=== PATIENT | male | born 1950 | race Caucasian/White ===

== ENCOUNTER → 2018-01-01 | Outpatient (REF) | payer OTHER ==
[2018-01-09 00:07] LABS: COPPER PLASMA 66 ug/dL (72-166); LEAD BLOOD ADULT 2 ug/dL (0-4); MERCURY LEVEL 1.4 ug/L (0.0-14.9); VITAMIN B6,PYRIDOXAL PHOSPHATE 18.9 ug/L (5.3-46.7); VITAMIN E(ALPHA TOCOPHEROL) 14.7 mg/L (9.0-29.0); VITAMIN E(GAMMA TOCOPHEROL) 0.8 mg/L (0.5-4.9)
== END ==
LOC: M LABNEURO 14:43
DX: E53.8 Deficiency of other specified B group vitamins (principal); R25.1 Tremor, unspecified; R26.89 Other abnormalities of gait and mobility
CPT/HCPCS: 82525

== ENCOUNTER 2019-01-26 07:12 | Day surgery (SDC) | payer OTHER ==
[~2019-01-26] VITALS: Ht 170.2 cm; Wt 88.9 kg
[~2019-01-26 07:12] MED LIST: ASPI81TA26 PO; CHOL100029 PO; COLE625TAB PO; FLAX1300 PO; GNP1000T11 PO; LISI10TA4 PO; LORA-243 PO; METF-723 PO; MULTCAP PO; NS 1,000 ML IV ONE
[2019-01-26] MEDS ORDERED: propofoL 200 MG/20 ML VIAL As Ordered ONE ×3 (08:41→09:37)
[2019-01-26] MEDS ORDERED: LIDOCAINE 2% INJ 100 MG/5 ML SDV (FOR ANES.) As Ordered ONE (08:41)
--- NOTE | 2019-01-26 09:46 | ROOR ---
Patient Name: Moshe Tillman Procedure Date: 01/26/2019 8:59 AM Date of : 1950 Age: 68 Room: [facility] Gender: Male Note Status: Finalized Procedure: Total Colonoscopy to cecum + Bx. Indications: Screening for colorectal malignant neoplasm Providers: Haris Wilson MD Referring MD: MARY SIMPSON NP Requesting Provider: Medicines: Monitored Anesthesia Care Complications: No immediate complications. Procedure: Pre-Anesthesia Assessment: - The heart rate, respiratory rate, oxygen saturations, blood pressure, adequacy of pulmonary ventilation, and response to care were monitored throughout the procedure. The Colonoscope was introduced through the anus and advanced to the cecum, identified by appendiceal orifice and ileocecal valve. The colonoscopy was performed without difficulty. The patient tolerated the procedure well. The quality of the bowel preparation was excellent. Findings: The perianal and digital rectal examinations were normal. Non-bleeding internal hemorrhoids were found during retroflexion. The hemorrhoids were small and Grade I (internal hemorrhoids that do not prolapse). Scattered small-mouthed diverticula were found in the recto-sigmoid colon, sigmoid colon and descending colon. A large polyp was found in the cecum. The polyp was sessile. The polyp was removed with a jumbo cold forceps. Resection and retrieval were complete. The exam was otherwise without abnormality on direct and retroflexion views. Impression: - Non-bleeding internal hemorrhoids. - Diverticulosis in the recto-sigmoid colon, in the sigmoid colon and in the descending colon. - One large polyp in the cecum, removed with a jumbo cold forceps. Resected and retrieved. - The examination was otherwise normal on direct and retroflexion views. - The exam was otherwise normal to the cecum. Recommendation: - Patient has a contact number available for emergencies. The signs and symptoms of potential delayed complications were discussed with the patient. Return to normal activities tomorrow. Written discharge instructions were provided to the patient. - High fiber diet. - Discharge patient to home. - Continue present medications. - Await pathology results. - Telephone GI clinic for pathology results in 1 week. - Return to referring physician. - The findings and recommendations were discussed with the patient's family. Haris Wilson MD Haris Wilson MD 01/26/2019 9:45:49 AM Electronically signed by Haris Wilson MD Number of Addenda: 0 Note Initiated On: 01/26/2019 8:59 AM Estimated Blood Loss: Estimated blood loss: none.
[2019-01-26 10:10] VITALS: BP 121/71
== END 2019-01-26 10:17 | disposition home or self-care (01) ==
LOC: M OPP 07:12
PROVIDERS: ATTEND Internal Medicine Gastroenterology
DX: Z12.11 Encounter for screening for malignant neoplasm of colon (principal); K64.0 First degree hemorrhoids; K57.30 Diverticulosis of large intestine without perforation or abscess without bleeding; D12.0 Benign neoplasm of cecum; I10 Essential (primary) hypertension; E78.5 Hyperlipidemia, unspecified; E11.9 Type 2 diabetes mellitus without complications; K76.89 Other specified diseases of liver; Z85.820 Personal history of malignant melanoma of skin; M19.90 Unspecified osteoarthritis, unspecified site; L40.9 Psoriasis, unspecified; R06.83 Snoring; Z79.82 Long term (current) use of aspirin; Z79.899 Other long term (current) drug therapy; Z79.84 Long term (current) use of oral hypoglycemic drugs

== ENCOUNTER 2019-02-20 15:40 | Emergency (ER) | payer OTHER ==
[~2019-02-20] VITALS: Ht 170.2 cm; Wt 92.4 kg
[~2019-02-20 15:40] MED LIST changes: -NS 1,000 ML IV ONE
[2019-02-20 16:47] LABS: HEMOGLOBIN 12.3 g/dl (13.5-17.5); MEAN CORPUSCULAR HEMOGLOBIN 28.5 pg (27.0-33.0); MEAN CORPUSCULAR HGB CONC 31.5 g/dl (32.0-36.5); MEAN CORPUSCULAR VOLUME 90.3 fl (80.0-96.0); PLATELET COUNT, AUTOMATED 149 10^3/uL (150-450); RED BLOOD COUNT 4.32 10^6/uL (4.30-6.10); WHITE BLOOD COUNT 5.6 10^3/uL (4.0-10.0)
[2019-02-20 17:12] LABS: BLOOD UREA NITROGEN 16 MG/DL (7-18); CARBON DIOXIDE LEVEL 27 MEQ/L (21-32); CHLORIDE LEVEL 106 MEQ/L (98-107); GLOMERULAR FILTRATION RATE > 60.0 (>42); GLUCOSE, FASTING 86 MG/DL (70-100); POTASSIUM SERUM 4.7 MEQ/L (3.5-5.1); SODIUM LEVEL 139 MEQ/L (136-145)
[2019-02-20 18:00] VITALS: BP 138/70
--- NOTE | 2019-02-22 11:39 | ECGEPIP ---
[facility] - ED Test Date: 2019-02-20 Pat Name: SAM ARAUJO Department: Room: - Gender: Male Incident Manager: jean carlos erazo : 1950 Requested By: Ignacio Aj Order Number: [id number] Reading MD: Violette Molina Measurements Intervals [place] Rate: 63 P: 17 TX: 156 QRS: 20 QRSD: 150 T: 20 QT: 435 QTc: 446 Interpretive Statements SINUS RHYTHM RIGHT BUNDLE BRANCH BLOCK NO PRIOR Electronically Signed on 02-22-2019 11:38:52 EST by Violette Molina
== END 2019-02-20 18:28 | disposition home or self-care (01) ==
LOC: M ED 15:40
DX: R55 Syncope and collapse (principal); I45.10 Unspecified right bundle-branch block; E11.9 Type 2 diabetes mellitus without complications; I10 Essential (primary) hypertension; Z79.82 Long term (current) use of aspirin; Z79.84 Long term (current) use of oral hypoglycemic drugs; Z79.899 Other long term (current) drug therapy

== ENCOUNTER 2019-05-28 06:20 | Inpatient (IN) | payer OTHER ==
--- NOTE | 2019-05-26 19:40 | HPE ---
DATE OF SCHEDULED ADMISSION: 05/28/2019 The patient is being admitted on May 28, 2019 for a right hemicolectomy for a non-endoscopically resectable cecal polyp. HISTORY OF PRESENT ILLNESS: The patient is a 69-year-old man who had undergone a colonoscopy as a routine screening procedure with Dr. Wilson on January 26, 2019. He was found to have what was described as a large polyp in the cecum. Portions of this were removed with a snare, but it could not be completely removed. Pathology revealed fragments of tubular adenoma with no definite high-grade dysplasia identified. The patient was referred for consideration of colectomy to resect this polyp. Review of his endoscopy photos suggests the polyp lies near the ileocecal valve, between this and the appendiceal orifice. The patient was counseled for partial colectomy to remove this. He elected to defer treatment until after the holidays and is being admitted now on May 28, 2019 for a robotic-assisted laparoscopic right hemicolectomy. ALLERGIES: The patient denies any known drug allergies. MEDICATIONS: Medications include: - aspirin 81 mg by mouth daily - flaxseed oral 1000 mg three tablets daily - vitamin D 2000 units by mouth daily - glucosamine 500 mg two tablets daily - lisinopril 10 mg by mouth daily - metformin 500 mg by mouth twice daily - Welchol 625 mg three tablets twice daily with meals. - He was prescribed neomycin and Flagyl and Suprep for a preoperative antibiotic and mechanical bowel preparation. SURGICAL HISTORY: Significant for an umbilical hernia repair in June of 2008 at [facility]. 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 MEDICAL HISTORY: Significant for hypertension. He has a history of hypercholesterolemia as well as diabetes. SOCIAL HISTORY: The patient is . He is a former smoker who quit over 40 years ago. He denies any alcohol use. FAMILY HISTORY: Father and mother are both due to unknown causes. He has a brother with diabetes and hypertension, and a sister who has had heart disease and breast cancer. REVIEW OF SYSTEMS: Reveals no history of chest pain or palpitations. He denies any shortness of breath, cough or wheezing. He has had no melena, hematochezia, diarrhea or constipation. He denies any dysuria or hematuria. He is not having any significant bone or joint issues at this time. There is no history of deep vein thrombosis (DVT) or pulmonary embolus. There is no history of stroke, transient ischemic attack (TIA) or seizure. PHYSICAL EXAM: Reveals a pleasant older man in no acute distress. Height is recorded as 67 inches with a weight of 94 kg, giving him a body mass index (BMI) of approximately 32. The skin is warm and dry. Sclerae are anicteric. There are no concerning facial lesions. Mucous membranes are moist. Neck is supple without mass. There are no cervical bruits. Heart Exam: Shows a regular rate and rhythm. The lungs are clear to auscultation bilaterally. The abdomen is flat but perhaps mildly obese. He has active bowel sounds present. The abdomen is soft and nontender without appreciable mass. There is a small periumbilical scar noted with no evidence of recurrent hernia. Digital rectal examination at the time of his colonoscopy revealed no palpable lesion. Skin: Warm and dry without apparent rash. He is alert and oriented. IMPRESSION: 1. Cecal polyp, not endoscopically resectable per Dr. Wilson of gastroenterology. 2. Essential hypertension. 3. Hypercholesterolemia. 4. Diabetes mellitus. PLAN: The patient is being admitted on May 28, 2019 to undergo a robotic-assisted laparoscopic right partial colectomy. He was counseled regarding the indications for surgery. He has a polyp which does not appear to be endoscopically resectable and there is a small risk that this either harbors cancer now or could proceed to cancer in the future. He had an opportunity to ask questions regarding the procedure. He was counseled regarding the risk of the procedure, which includes but is not limited to bleeding, infection, scarring, adverse drug reaction, need for further surgery, injury of internal organ, anastomotic leak, and hernia. The patient desires to proceed with the surgery. He was counseled that he should anticipate a hospital stay of perhaps 3-5 days, although this is a rough estimate. He will prepare himself with a mechanical bowel preparation and antibiotic bowel preparation with neomycin and Flagyl the day before surgery. CASH
[~2019-05-28] VITALS: Ht 170.2 cm; Wt 88.0 kg
[~2019-05-28 06:20] MED LIST changes: +ALVIMOPAN 12 MG CAPSULE (ENTEREG) PO ONE; +B-COTAB4 PO; +CLOB0.0526 TOP; +LR 1,000 ML IV ONE; +MECL12.589 PO; +PEG15DRO2 OP; +VITA100054 PO; +[UNRECOGNIZED DRUG - OTHER] TOP; +cefoTEtan DISODIUM 2 GM in D5W MINI-BAG PLUS 50 ML IV ONE
[2019-05-28] MEDS ORDERED: cefoTEtan INJ 2GM VIAL (S0074 PER 500MG) As Ordered ONE (06:30)
[2019-05-28] MEDS ORDERED: MIDAZOLAM INJ 2 MG/2 ML VIAL (J2250) As Ordered ONE (06:33)
[2019-05-28] MEDS ORDERED: fentaNYL 250 MCG/5 ML INJECTION (J3010) As Ordered ONE (06:34)
[2019-05-28] MEDS ORDERED: dexameTHASONE 4 MG/ML 1ML VIAL (J1100) As Ordered ONE (06:35)
[2019-05-28] MEDS ORDERED: LIDOCAINE 2% INJ 100 MG/5 ML SDV (FOR ANES.) As Ordered ONE (06:35)
[2019-05-28] MEDS ORDERED: ONDANSETRON 4MG/2ML VIAL (J2405) As Ordered ONE (06:35)
[2019-05-28] MEDS ORDERED: SUGAMMADEX SODIUM 500 MG/5 ML VIAL (BRIDION) As Ordered ONE (06:35)
[2019-05-28] MEDS ORDERED: propofoL 200 MG/20 ML VIAL As Ordered ONE (06:35)
[2019-05-28] MEDS ORDERED: ROCURONIUM BROMIDE 50 MG/5 ML VIAL As Ordered ONE (06:35)
[2019-05-28] MEDS ORDERED: BUPIVACAINE HCL 0.25% 30 ML VIAL As Ordered ONE (07:10)
[2019-05-28] MEDS ORDERED: FLAG500T PO (07:22)
[2019-05-28] MEDS ORDERED: NEOM500T PO (07:22)
[2019-05-28] MEDS ORDERED: ACETAMINOPHEN 1000MG 100ML IV BTL (OFIRMEV) (J0131 PER 10MG) As Ordered ONE (08:41)
[2019-05-28] MEDS ORDERED: fentaNYL 100 MCG/2 ML INJECTION (J3010) As Ordered ONE (09:52)
[2019-05-28] MEDS ORDERED: PHENYLephrine HCL 500 MCG/5 ML (100MCG/ML) SYRINGE (J2370) As Ordered ONE (10:33)
[2019-05-28] MEDS ORDERED: ePHEDrine SULFATE 25 MG/5 ML(5MG/ML) SYRINGE As Ordered ONE (10:33)
[2019-05-28] MEDS ORDERED: ONDANSETRON 4MG/2ML VIAL (J2405) IV PRN ×2 (11:30→11:45)
[2019-05-28] MEDS ORDERED: MORPHINE 2 MG/ML 1ML VIAL (J2270) IV PRN (11:30)
[2019-05-28] MEDS ORDERED: ACETAMINOPHEN TAB 650MG DOSE (2X325MG) PO PRN (11:30)
[2019-05-28] MEDS ORDERED: NORCO, ANEXSIA 5/325MG TABLET (HYDROcodone/ACETAMINOPHEN) PO PRN (11:30)
[2019-05-28] MEDS ORDERED: KETOROLAC 30 MG/ML VIAL (J1885) IV PRN ×2 (11:30→11:45)
[2019-05-28] MEDS ORDERED: oxyCODONE 5MG TAB PO PRN (11:45)
[2019-05-28] MEDS ORDERED: fentaNYL 100 MCG/2 ML INJECTION (J3010) IV PRN (11:45)
[2019-05-28] MEDS ORDERED: LR 1,000 ML IV SCH (11:45)
[2019-05-28 12:15] VITALS: BP 160/99
[2019-05-28 12:24] VITALS: BP 160/99
[2019-05-28] MEDS: LR 1,000 ML IV SCH (13:49)
[2019-05-28 14:00] VITALS: BP 148/98
[2019-05-28 18:00] VITALS: BP 153/97; O2SAT 96
[2019-05-28] MEDS: HumaLOG INSULIN (NovoLOG) PER UNIT SC SCH (18:40)
[2019-05-28] MEDS ORDERED: cefoTEtan DISODIUM 2 GM in D5W MINI-BAG PLUS 50 ML IV ONE (19:30)
[2019-05-28 21:00] VITALS: O2SAT 97
[2019-05-28] MEDS ORDERED: HumaLOG INSULIN (NovoLOG) PER UNIT SC SCH (21:00)
[2019-05-28] MEDS: MECLIZINE 12.5 MG TAB PO SCH (21:24)
[2019-05-28] MEDS: ALVIMOPAN 12 MG CAPSULE (ENTEREG) PO SCH (21:24)
[2019-05-28 22:00] VITALS: BP 157/93
[2019-05-28] MEDS: ENOXAPARIN 40 MG/0.4 ML SYRINGE (J1650) SC SCH (22:17)
[2019-05-29] MEDS: LR 1,000 ML IV SCH (01:01)
[2019-05-29 02:00] VITALS: BP 152/95
[2019-05-29 06:00] VITALS: BP 151/96
[2019-05-29 06:47] LABS: BASO % 0.7 % (0.0-1.0); EOS # 0.1 10^3/uL (0.0-0.5); EOS % 1.4 % (0.0-3.0); HEMATOCRIT 33.1 % (42.0-52.0); HEMOGLOBIN 10.8 g/dl (13.5-17.5); LYMPH # 2.1 10^3/uL (1.5-5.0); LYMPH % 36.5 % (24.0-44.0); MEAN CORPUSCULAR HEMOGLOBIN 28.6 pg (27.0-33.0); MEAN CORPUSCULAR HGB CONC 32.6 g/dl (32.0-36.5); MEAN CORPUSCULAR VOLUME 87.8 fl (80.0-96.0); MONO # 0.5 10^3/uL (0.0-0.8); MONO % 7.9 % (0.0-5.0); NEUTROPHILS # 3.1 10^3/uL (1.5-8.5); NEUTROPHILS % 53.2 % (36.0-66.0); PLATELET COUNT, AUTOMATED 124 10^3/uL (150-450); RED BLOOD COUNT 3.77 10^6/uL (4.30-6.10); WHITE BLOOD COUNT 5.8 10^3/uL (4.0-10.0)
[2019-05-29 07:19] LABS: ALBUMIN 3.2 GM/DL (3.2-5.2); ALT/SGPT 93 U/L (12-78); BILIRUBIN,TOTAL 0.9 MG/DL (0.2-1.0); BLOOD UREA NITROGEN 12 MG/DL (7-18); CARBON DIOXIDE LEVEL 27 MEQ/L (21-32); CHLORIDE LEVEL 104 MEQ/L (98-107); CREATININE FOR GFR 1.07 MG/DL (0.70-1.30); GLOMERULAR FILTRATION RATE > 60.0 (>42); GLUCOSE, FASTING 95 MG/DL (70-100); POTASSIUM SERUM 3.9 MEQ/L (3.5-5.1); SODIUM LEVEL 138 MEQ/L (136-145); TOTAL PROTEIN 6.3 GM/DL (6.4-8.2)
[2019-05-29] MEDS: HumaLOG INSULIN (NovoLOG) PER UNIT SC SCH (07:30)
[2019-05-29] MEDS: MECLIZINE 12.5 MG TAB PO SCH ×3 (09:04→21:03)
[2019-05-29] MEDS: ALVIMOPAN 12 MG CAPSULE (ENTEREG) PO SCH ×2 (09:04→21:03)
[2019-05-29] MEDS: LORATADINE 10 MG TAB PO SCH (09:04)
[2019-05-29] MEDS: lisinopriL 10 MG TAB PO SCH (09:08)
[2019-05-29 10:00] VITALS: BP 174/89
[2019-05-29 11:30] VITALS: BP 151/86
--- NOTE | 2019-05-29 12:09 | RO ---
DATE OF PROCEDURE: 05/28/2019 PREOPERATIVE DIAGNOSIS: Cecal polyp. POSTOPERATIVE DIAGNOSIS: Cecal polyp. PROCEDURE PERFORMED: A robotic-assisted laparoscopic right hemicolectomy with ileocolonic anastomosis. SURGEON: Dr. Chandra ANCIENT ART CURATOR: Dr. Samuel who was essential for assisting with exposure of the ileum and colon for an anastomosis and performance of the anastomosis. SECOND SENIOR CARE MANAGER: ROZINA Wilson who was essential for adjustment of the robot and passage of instruments. ANESTHESIA: General. INDICATIONS FOR PROCEDURE: The patient is a 68-year-old man who had undergone a colonoscopy as a routine screening procedure. He was found to have a large flat polyp in the cecum. Biopsies revealed adenomatous polyp, but this was not felt to be endoscopically resectable. He is now for a robotic-assisted laparoscopic right hemicolectomy. OPERATIVE PROCEDURE: The patient was brought to the operating room and placed on the table in a supine position. He was placed under general endotracheal anesthesia. Thromboembolic deterrent stockings (TEDS) and sequentials were utilized. A Stone catheter was inserted. The patient's abdomen was prepped and draped in a sterile fashion. 0.25% Marcaine was infiltrated at the trocar sites as needed. A short transverse incision was made just below the costal margin in the left upper quadrant. A Veress needle was inserted and after a positive hanging drop test the abdomen was insufflated with carbon dioxide gas. The 5 mm scope was placed through an 8 mm robotic port and this was advanced through the abdominal wall without difficulty. Initial examination showed no significant adhesions. The liver appeared mildly nodular but of normal coloration. The gallbladder was distended but not inflamed. Visualized loops of the small and large bowel appeared normal. A second 8 mm port was placed approximately midway between the left upper quadrant site and the umbilicus. A 12 mm port was placed just above the umbilicus and a third 8 mm port was placed in the right lower quadrant. The patient was rolled somewhat to the left. The [employer] patient cart was then brought into position and the camera port in the left upper quadrant was docked. The robotic camera was inserted and targeting took place on the right colon. The additional robotic arms were then docked. A grasping retractor was placed in the right lower quadrant port, a bipolar in the supraumbilical site and a cauterizing scissors in the left upper quadrant site. Attention was turned to the right colon. Initial examination showed a few bands of adhesion from the right colon and cecum to the lateral abdominal wall and these were divided. The lateral attachments of the cecum and ascending colon were divided working upwards along the ascending colon and mobilizing this medially. The lateral attachments of the terminal ileum were divided as well. The hepatic flexure was tucked beneath the liver and gallbladder significantly and it was necessary to elevate the edge of the liver with a grasper to identify the superior attachments of the hepatic flexure and divide these with the cauterizing scissors. The transverse colon took a significant loop inferiorly and so the transverse colon was identified just proximal to this inferior dip where it would make for ease of the anastomosis. Some of the greater omentum was elevated off of the transverse colon. The proximal transverse colon was then traced across the hepatic flexure dividing the remaining attachments beneath the liver using the vessel sealer. The colon was mobilized further medially. The terminal ileum was divided with a load of the 60 mm endoscopic linear cutter with a green load. The mesentery was divided down to the base with a vessel sealer. The transverse colon was then isolated and transected at the level of the proximal transverse colon again with a load of the 60 mm stapler. The mesentery of the transverse colon was then also divided down to its base. Dissection then continued dividing the mesentery along its base connecting the area of the cecum to the division site of the transverse colon, thus completely freeing the specimen. The terminal ileum was inspected and was clearly adequately mobilized for later anastomosis. Likewise the transverse colon was adequately mobilized. At this point the robot was undocked. Hand laparoscopic instruments were used to grasp the terminal ileum, the transverse colon and the specimen through the various ports. The 12 mm supraumbilical port was removed and the abdomen deflated. The incision was extended to approximately 6 cm. A small Anjum retractor was placed. The specimen was delivered through the retractor and placed on the back table for later inspection. The end of the terminal ileum was then delivered with care not to rotate this and the end of the transverse colon was also delivered through the retractor. The stapled anastomosis was performed with a linear cutter 55 and completed with a TX60G stapler. Several inverting reinforcing sutures of 3-0 Vicryl were placed. The anastomosis appeared excellent. This was irrigated and then reduced into the abdomen. At this point the Anjum retractor was removed. The surgical team then changed gowns and gloves for the wound closure. Before proceeding with the wound closure, I opened the specimen off the field and identified an approximately 2-1/2-3 cm roughly round flat polypoid area around the appendiceal orifice. This did not appear suspicious for malignancy. The specimen was sent for permanent pathology. I then returned to the patient. The fascia along the midline was closed with interrupted simple sutures of #1 Vicryl. A final look in the abdomen showed the anastomosis with no bleeding. The robotic instruments were removed and the robot undocked. The abdomen was deflated and the trocars were removed. The skin incisions were then all closed with buried 4-0 Vicryl and Steri-Strips. Additional local anesthesia was infiltrated particularly along the supraumbilical site. Light dressings were applied. The patient was then awakened. Prior to awakening his Stone catheter was removed. He was awakened and extubated and moved to the recovery room in stable condition. CASH
[2019-05-29] MEDS: metFORMIN XR 500MG TAB *GLUCOPHAGE XR PO SCH ×2 (12:46→21:03)
[2019-05-29 14:00] VITALS: BP 146/72
[2019-05-29 22:00] VITALS: BP 154/80
[2019-05-30] MEDS: ENOXAPARIN 40 MG/0.4 ML SYRINGE (J1650) SC SCH (00:18)
[2019-05-30 03:30] VITALS: BP 125/77
[2019-05-30 06:45] VITALS: BP 126/78
[2019-05-30 08:37] VITALS: BP 126/78
[2019-05-30] MEDS: lisinopriL 10 MG TAB PO SCH (08:37)
[2019-05-30] MEDS: MECLIZINE 12.5 MG TAB PO SCH (08:37)
[2019-05-30] MEDS: metFORMIN XR 500MG TAB *GLUCOPHAGE XR PO SCH (08:37)
[2019-05-30] MEDS: ALVIMOPAN 12 MG CAPSULE (ENTEREG) PO SCH (08:37)
[2019-05-30] MEDS: LORATADINE 10 MG TAB PO SCH (08:37)
[2019-05-30 10:00] VITALS: BP 157/81
--- NOTE | 2019-06-16 17:41 | DSES ---
DATE OF ADMISSION: 05/28/2019 DATE OF DISCHARGE: 05/30/2019 ADMITTING DIAGNOSIS: Non-endoscopically resectable cecal polyp. HISTORY OF PRESENT ILLNESS: The patient is a 69-year-old man who had undergone a colonoscopy as a routine screening procedure by Dr. Wilson on 04/28/2018. He was found to have what was described as a large polyp in the cecum. Portions of this were removed with a snare but it could not be completely removed. Pathology revealed fragments of tubular adenoma with no definite high-grade dysplasia. The patient was referred for consideration of colectomy to resect this polyp. Review of his endoscopy photos suggested that the polyp laying near the ileocecal valve between this and the appendiceal orifice. The patient was counseled for a partial colectomy to remove this. He is now admitted for a robotic-assisted laparoscopic right hemicolectomy. HOSPITAL COURSE: The patient had performed a full mechanical and antibiotic bowel preparation prior to admission. He was brought into the hospital on 05/28/2019. He was taken directly to the operating room where he underwent a robotic-assisted laparoscopic right hemicolectomy with an ileocolonic anastomosis. His procedure was uncomplicated. He was started on clear liquids on the day of surgery. His postoperative course was unremarkable. His diet was rapidly advanced and he was discharged home on 05/30/2019. His pathology report revealed a large tubulovillous adenoma with foci of high-grade dysplasia but no malignancy was identified. FINAL DIAGNOSES: 1. 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 2. Essential hypertension. 3. Hypercholesterolemia. 4. Diabetes mellitus. DISPOSITION: The patient was discharged home on 05/30/2019. He was to followup in the office with me in approximately two weeks. He was advised against any strenuous physical activity for two weeks. He could take a diet as tolerated. He was advised that he could shower starting on 05/31/2019. He was to continue his medicines as before admission. He was not provided any new medications and was using only acetaminophen or ibuprofen for pain.
== END 2019-05-30 14:04 | disposition home or self-care (01) | DRG 331 ==
LOC: M OR 06:20 → M MSPAV 12:18
PROVIDERS: ADMIT Surgery; ATTEND Surgery
PROC: 8E0W4CZ Robotic Assisted Procedure of Trunk Region, Percutaneous Endoscopic Approach (ICD-10-PCS; 2019-05-28)
PROC: 0DBK4ZZ Excision of Ascending Colon, Percutaneous Endoscopic Approach (ICD-10-PCS; principal; 2019-05-28 07:30)
DX: D37.4 Neoplasm of uncertain behavior of colon (principal); Z85.828 Personal history of other malignant neoplasm of skin; I10 Essential (primary) hypertension; E11.9 Type 2 diabetes mellitus without complications; E78.3 Hyperchylomicronemia; Z87.891 Personal history of nicotine dependence; Z79.899 Other long term (current) drug therapy; Z79.84 Long term (current) use of oral hypoglycemic drugs; Z79.82 Long term (current) use of aspirin; Z98.49 Cataract extraction status, unspecified eye

== ENCOUNTER → 2021-01-27 | Outpatient (REF) | payer OTHER ==
[~2021-01-27] MED LIST changes: -ALVIMOPAN 12 MG CAPSULE (ENTEREG) PO ONE; +COLE1TAB PO; +COQ-100C5 PO; +D31000TA2 PO; +FERR324T2 PO; +FLAG500T PO; +FLON1SPR; +GABA-1171 PO; +GLUC1CAP10 PO; +LISI10TA22 PO; -LISI10TA4 PO; -LR 1,000 ML IV ONE; +MECL-136 PO; -MECL12.589 PO; +NEOM500T PO; +OXYB5TAB10 PO; +SUPETAB44 PO; +VITMTA PO; +[UNRECOGNIZED DRUG - OTHER] PO; +[UNRECOGNIZED DRUG - OTHER] TOP; +albaplex PO; -cefoTEtan DISODIUM 2 GM in D5W MINI-BAG PLUS 50 ML IV ONE
== END ==
LOC: M LAB 11:21 → EDSTATUS 02-02 12:37
PROVIDERS: ATTEND Nurse Practitioner Primary Care
DX: N40.1 Benign prostatic hyperplasia with lower urinary tract symptoms (principal)

== ENCOUNTER → 2021-02-08 | Outpatient (CLI) | payer OTHER | LOC: M LABSMTC 09:52 | PROVIDERS: ATTEND Anesthesiology | DX: Z01.812 Encounter for preprocedural laboratory examination (principal); Z20.822 Contact with and (suspected) exposure to COVID-19 ==

== ENCOUNTER 2021-02-13 09:32 | Day surgery (SDC) | payer OTHER ==
[~2021-02-13] VITALS: Ht 170.2 cm; Wt 85.7 kg
[~2021-02-13 09:32] MED LIST changes: +LIDOCAINE 2% 100MG/5ML SDV (FOR ANES.) As Ordered ONE; +NS 1,000 ML IV ONE; +fentaNYL 100 MCG/2 ML INJECTION (J3010) As Ordered ONE; +propofoL 500 MG/50 ML VIAL As Ordered ONE
--- OUTSIDE RECORDS SUMMARY | 2021-02-13 09:39 | CCD | Continuity of Care Document ---
Author Author Moshe WILSON Organization Unknown Address [address] [place] [id number] Phone [phone] Care Team Providers Care Buttoner Name Role Phone Virgil Souza MD AUTM [phone] Problems Active Problems Provider Date Anemia Haris Wilson M.D. Onset: 12/16/19 21 Screening for malignant neoplasm of colon Haris colby M.D. Onset: 12/18/2018 Social History Type Date Description Comments Sex Unknown ETOH Use Denies alcohol use Tobacco Use Start: Unknown End: Unknown Patient is a former smoker QUIT 1970 Allergies, Adverse Reactions, Alerts Description No Known Drug Allergies Medications Active Medications SIG Qnty Indications Ordering Provide r Date Suprep Bowel Prep Kit 17.5-3.13-1.6GM/177ML Solution use as directed 354ml Haris Wilson M.D. 12/15/2020 Metformin HCL ER 500mg Tablets ER 24HR Susanna Ruiz RPA Multiple Vitamin Tablets Unknown Flax Seed Oil 1300mg Capsules Unknown Glucosamine 750mg Tablets Unknown Vitamin D3 50mcg (2000 Ut) Capsules Unknown Colestid 1gm Tablets Unknown B Complex Capsules Unknown Coq-10 30mg Capsules Unknown Tamsulosin HCL 0.4mg Capsules Unknown Ferrous Sulfate 324(65Fe) mg Table ts DR 1 by mouth every day Unknown Immunizations Description No Information Available Vital Signs Date Vital Result Comment 12/15/2020 3:48pm Height 67 inches 5'7" Weight 200.00 lb BP Systolic 125 mmHg BP Diastolic 74 mmHg Heart Rate 83 /min BMI (Body Mass Index) 31.3 kg/m2 Weight 90.720 kg Body Temperature 97.7 F 02/12/2019 12:24pm Height 67 inches 5'7" Weight 205.00 lb BP Systolic 131 mmHg BP Diastolic 79 mmHg Heart Rate 87 /min BMI (Body Mass Index) 32.1 kg/m2 Weight 92.988 kg Results Description No Information Available Procedures Date Code Description Status 12/15/2020 26762 Office/Outpatient Established Lo w MDM 20-29 Min Completed Medical Devices Description No Information Available Encounters Type Date Location Provider Dx Diagnosis Office Visit 12/15/2020 3:45p Main Office Haris Wilson M.D. D 64.9 Anemia, unspecified Assessments Date Code Description Provider 12/15/2020 D64.9 Anemia Haris gaspar M.D. Plan of Treatment Future Appointment(s):* 02/13/2021 1:00 pm - Haris Wilson M.D. at Main Office 12/15/2020 - Haris Wilson M.D.* D64.9 Anemia* Comments:* 70 yo wm who presents for a colonoscopy + egd due to a h/o anemia. No c/o abdominal pain, weight loss, change in bowel habits, or rectal bleeding. No family h/o colon cancer. No h/o chest pain, or sob. Plan:1. Colonoscopy + egd.2. Informed consent. Functional Status Description No Information Available Mental Status Description No Information Available Referrals Refer to Dr Reason for Referral Status Appt Date Haris Wilson M.D. Created [address] [place] [address] [phone] Haris Wilson M.D. Created [address] [place] [address] [phone]
--- OUTSIDE RECORDS SUMMARY | 2021-02-13 09:40 | CCD ---
Author Author [facility] Organization [facility] Address Unknown Phone Unavailable Care Team Providers Care Hazmat Tanker Driver Name Role Phone Dillon Wilson MD Unavailable Unavailable Dillon Wilson MD Unavailable Unavailable Dillon Wilson MD Unavailable Unavailable Dillon Wilson MD Unavailable Unavailable Dillon Wilson MD Unavailable Unavailable Dillon Wilson MD Unavailable Unavailable Dillon Wilson MD Unavailable Unavailable Dillon Wilson MD Unavailable Unavailable Dillon Wilson MD Unavailable Unavailable Dillon Wilson MD Unavailable Unavailable Dillon Wilson MD Unavailable Unavailable Dillon Wilson MD Unavailable Unavailable Dillon Wilson MD Unavailable Unavailable Dillon Wilson MD Unavailable Unavailable Dillon Wilson MD Unavailable Unavailable Dillon Wilson MD Unavailable Unavailable Dillon Wilson MD Unavailable Unavailable Dillon Wilson MD Unavailable Unavailable Dillon Wilson MD Unavailable Unavailable Dillon Wilson MD Unavailable Unavailable Dillon Wilson MD Unavailable Unavailable Dillon Wilson MD Unavailable Unavailable Dillon Wilson MD Unavailable Unavailable Dillon Wilson MD Unavailable Unavailable Dillon Wilson MD Unavailable Unavailable Dillon Wilson MD Unavailable Unavailable Dillon Wilson MD Unavailable Unavailable Dillon Wilson MD Unavailable Unavailable Dillon Wilson MD Unavailable Unavailable Dillon Wilson MD Unavailable Unavailable Dillon Wilson MD Unavailable Unavailable Dillon Wilson MD Unavailable Unavailable Dillon Wilson MD Unavailable Unavailable Dillon Wilson MD Unavailable Unavailable Dillon Wilson MD Unavailable Unavailable Dillon Wilson MD Unavailable Unavailable Steve S Haris OBREGON Unavailable Unavailable Steve S Haris OBREGON Unavailable Unavailable Steve S Haris OBREGON Unavailable Unavailable Steve S Haris OBREGON Unavailable Unavailable Steve, S Haris OBREGON Unavailable Unavailable Steve, S Haris MD Unavailable Unavailable Steve, S Hrais MD Unavailable Unavailable Steve, S Haris MD Unavailable Unavailable Steve, S Haris OBREGON Unavailable Unavailable Steve, S Haris OBREGON Unavailable Unavailable Steve, S Haris MD Unavailable Unavailable Steve S Haris OBREGON Unavailable Unavailable Steve, S Haris OBREGON Unavailable Unavailable Steve S Haris OBREGON Unavailable Unavailable AliJessica MD Unavailable Unavailable AliJessica MD Unavailable Unavailable AliJessica MD Unavailable Unavailable AliJessica MD Unavailable Unavailable AliJessica MD Unavailable Unavailable Ali, Jessica OBREGON Unavailable Unavailable Ali, Jessica OBREGON Unavailable Unavailable AliJessica MD Unavailable Unavailable AliJessica MD Unavailable Unavailable AliJessica MD Unavailable Unavailable AliJessica MD Unavailable Unavailable AliJessica MD Unavailable Unavailable AliJessica MD Unavailable Unavailable AliJessica MD Unavailable Unavailable AliJessica MD Unavailable Unavailable AliJessica MD Unavailable Unavailable AliJessica MD Unavailable Unavailable AliJessica MD Unavailable Unavailable AliJessica MD Unavailable Unavailable AliJessica MD Unavailable Unavailable AliJessica MD Unavailable Unavailable AliJessica MD Unavailable Unavailable AliJessica MD Unavailable Unavailable AliJessica MD Unavailable Unavailable AliJessica MD Unavailable Unavailable AliJessica MD Unavailable Unavailable AliJessica MD Unavailable Unavailable Jessica Ybarra MD Unavailable Unavailable Jessica Ybarra MD Unavailable Unavailable Jessica Ybarra MD Unavailable Unavailable AliJessica MD Unavailable Unavailable AliJessica MD Unavailable Unavailable AliJessica MD Unavailable Unavailable AliJessica MD Unavailable Unavailable AliJessica MD Unavailable Unavailable AliJessica MD Unavailable Unavailable AliJessica MD Unavailable Unavailable Jessica Ybarra MD Unavailable Unavailable Jessica Ybarra MD Unavailable Unavailable Jessica Ybarra MD Unavailable Unavailable Jessica Ybarra MD Unavailable Unavailable Jessica Ybarra MD Unavailable Unavailable Jessica Ybarra MD Unavailable Unavailable Jessica Ybarra MD Unavailable Unavailable Jessica Ybarra MD Unavailable Unavailable Jessica Ybarra MD Unavailable Unavailable Jessica Ybarra MD Unavailable Unavailable Jessica Ybarra MD Unavailable Unavailable Jessica Ybarra MD Unavailable Unavailable Jessica Ybarra MD Unavailable Unavailable AIDE, MAQBOOL SHEILA MD Unavailable Unavailable AIDE, MAQBOOL SHEILA MD Unavailable Unavailable AIDE, MAQBOOL SHEILA MD Unavailable Unavailable AIDE, MAQBOOL SHEILA MD Unavailable Unavailable AIDE, MAQBOOL SHEILA MD Unavailable Unavailable AIDE, MAQBOOL SHEILA MD Unavailable Unavailable AIDE, MAQBOOL SHEILA MD Unavailable Unavailable AIDE, MAQBOOL SHEILA MD Unavailable Unavailable AIDE, MAQBOOL SHEILA MD Unavailable Unavailable AIDE, MAQBOOL SHEILA MD Unavailable Unavailable AIDE, MAQBOOL SHEILA MD Unavailable Unavailable AIDE, MAQBOOL SHEILA MD Unavailable Unavailable AIDE, MAQBOOL SHEILA MD Unavailable Unavailable AIDE, MAQBOOL SHEILA MD Unavailable Unavailable AIDE, MAQBOOL SHEILA MD Unavailable Unavailable AIDE, MAQBOOL SHEILA MD Unavailable Unavailable AIDE, MAQBOOL SHEILA MD Unavailable Unavailable AIDE, MAQBOOL SHEILA MD Unavailable Unavailable AIDE, MAQBOOL SHEILA MD Unavailable Unavailable AIDE, MAQBOOL SHEILA MD Unavailable Unavailable AIDE, MAQBOOL SHEILA MD Unavailable Unavailable AIDE, MAQBOOL SHEILA MD Unavailable Unavailable AIDE, MAQBOOL SHEILA MD Unavailable Unavailable AIDE, MAQBOOL SHEILA MD Unavailable Unavailable AIDE, MAQBOOL SHEILA MD Unavailable Unavailable AIDE, MAQBOOL SHEILA MD Unavailable Unavailable AIDE, MAQBOOL SHEILA MD Unavailable Unavailable AIDE, MAQBOOL SHEILA MD Unavailable Unavailable AIDE, MAQBOOL SHEILA MD Unavailable Unavailable AIDE, MAQBOOL SHEILA MD Unavailable Unavailable AIDE, MAQBOOL SHEILA MD Unavailable Unavailable AIDE, MAQBOOL SHEILA MD Unavailable Unavailable AIDE, MAQBOOL SHEILA MD Unavailable Unavailable AIDE, MAQBOOL SHEILA MD Unavailable Unavailable AIDE, MAQBOOL SHEILA MD Unavailable Unavailable AIDE, MAQBOOL SHEILA MD Unavailable Unavailable AIDE, MAQBOOL SHEILA MD Unavailable Unavailable AIDE, MAQBOOL SHEILA MD Unavailable Unavailable AIDE, MAQBOOL SHEILA MD Unavailable Unavailable AIDE, MAQBOOL SHEILA MD Unavailable Unavailable AIDE, MAQBOOL SHEILA MD Unavailable Unavailable AIDE, MAQBOOL SHEILA MD Unavailable Unavailable AIDE, MAQBOOL SHEILA MD Unavailable Unavailable AIDE, MAQBOOL SHEILA MD Unavailable Unavailable AIDE, MAQBOOL SHEILA MD Unavailable Unavailable AIDE, MAQBOOL SHEILA MD Unavailable Unavailable AIDE, MAQBOOL SHEILA MD Unavailable Unavailable AIDE, MAQBOOL SHEILA MD Unavailable Unavailable AIDE, MAQBOOL SHEILA MD Unavailable Unavailable AIDE, MAQBOOL SHEILA MD Unavailable Unavailable AIDE, MAQBOOL SHEILA MD Unavailable Unavailable AIDE, MAQBOOL SHEILA MD Unavailable Unavailable AIDE, MAQBOOL SHEILA MD Unavailable Unavailable AIDE, MAQBOOL SHEILA MD Unavailable Unavailable AIDE, MAQBOOL SHEILA MD Unavailable Unavailable AIDE, MAQBOOL SHEILA MD Unavailable Unavailable AIDE, MAQBOOL SHEILA MD Unavailable Unavailable AIDE, MAQBOOL SHEILA MD Unavailable Unavailable AIDE, MAQBOOL SHEILA MD Unavailable Unavailable AIDE, MAQBOOL SHEILA MD Unavailable Unavailable AIDE, MAQBOOL SHEILA MD Unavailable Unavailable AIDE, MAQBOOL SHEILA MD Unavailable Unavailable AIDE, MAQBOOL SHEILA MD Unavailable Unavailable AIDE, MAQBOOL SHEILA MD Unavailable Unavailable AIDE, MAQBOOL SHEILA MD Unavailable Unavailable AIDE, MAQBOOL SHEILA MD Unavailable Unavailable AIDE, MAQBOOL SHEILA MD Unavailable Unavailable AIDE, MAQBOOL SHEILA MD Unavailable Unavailable AIDE, MAQBOOL SHEILA MD Unavailable Unavailable AIDE, MAQBOOL SHEILA MD Unavailable Unavailable AIDE, MAQBOOL SHEILA MD Unavailable Unavailable AIDE, MAQBOOL SHEILA MD Unavailable Unavailable AIDE, MAQBOOL SHEILA MD Unavailable Unavailable AIDE, MAQBOOL SHEILA MD Unavailable Unavailable AIDE, MAQBOOL SHEILA MD Unavailable Unavailable AIDE, MAQBOOL SHEILA MD Unavailable Unavailable AIDE, MAQBOOL SHEILA MD Unavailable Unavailable AIDE, MAQBOOL SHEILA MD Unavailable Unavailable [place], Franc[place]a MEDICAL SALES REPRESENTATIVE Unavailable Unavailable [place], [place] MEDICAL SALES REPRESENTATIVE Unavailable Unavailable [place], [place] MEDICAL SALES REPRESENTATIVE Unavailable Unavailable [place], [place] MEDICAL SALES REPRESENTATIVE Unavailable Unavailable [place], [place] MEDICAL SALES REPRESENTATIVE Unavailable Unavailable [place], [place] MEDICAL SALES REPRESENTATIVE Unavailable Unavailable [place], [place] MEDICAL SALES REPRESENTATIVE Unavailable Unavailable [place], [place] MEDICAL SALES REPRESENTATIVE Unavailable Unavailable [place], [place] MEDICAL SALES REPRESENTATIVE Unavailable Unavailable [place], [place] MEDICAL SALES REPRESENTATIVE Unavailable Unavailable [place], [place]a MEDICAL SALES REPRESENTATIVE Unavailable Unavailable [place], [place]a MEDICAL SALES REPRESENTATIVE Unavailable Unavailable [place], Franc[place]a MEDICAL SALES REPRESENTATIVE Unavailable Unavailable [place], Franhcesca MEDICAL SALES REPRESENTATIVE Unavailable Unavailable [place], [place]a MEDICAL SALES REPRESENTATIVE Unavailable Unavailable [place], [place]a MEDICAL SALES REPRESENTATIVE Unavailable Unavailable [place], [place] MEDICAL SALES REPRESENTATIVE Unavailable Unavailable [place], [place]a MEDICAL SALES REPRESENTATIVE Unavailable Unavailable [place], [place] MEDICAL SALES REPRESENTATIVE Unavailable Unavailable [place], [place] MEDICAL SALES REPRESENTATIVE Unavailable Unavailable [place], [place] MEDICAL SALES REPRESENTATIVE Unavailable Unavailable [place], [place] MEDICAL SALES REPRESENTATIVE Unavailable Unavailable [place], [place] MEDICAL SALES REPRESENTATIVE Unavailable Unavailable [place], [place] MEDICAL SALES REPRESENTATIVE Unavailable Unavailable [place], [place] MEDICAL SALES REPRESENTATIVE Unavailable Unavailable [place], [place] MEDICAL SALES REPRESENTATIVE Unavailable Unavailable [place], [place] MEDICAL SALES REPRESENTATIVE Unavailable Unavailable [place], [place] MEDICAL SALES REPRESENTATIVE Unavailable Unavailable [place], [place] MEDICAL SALES REPRESENTATIVE Unavailable Unavailable [place], [place]a MEDICAL SALES REPRESENTATIVE Unavailable Unavailable [place], [place] MEDICAL SALES REPRESENTATIVE Unavailable Unavailable [place], [place] MEDICAL SALES REPRESENTATIVE Unavailable Unavailable [place], [place] MEDICAL SALES REPRESENTATIVE Unavailable Unavailable [place], [place] MEDICAL SALES REPRESENTATIVE Unavailable Unavailable [place], [place] MEDICAL SALES REPRESENTATIVE Unavailable Unavailable [place], [place] MEDICAL SALES REPRESENTATIVE Unavailable Unavailable Annie GARIBAY RPA Unavailable Unavailable Annie GARIBAY RPA Unavailable Unavailable GARIBAY, G EDWARD RPA Unavailable Unavailable GARIBAY, G EDWARD RPA Unavailable Unavailable GARIBAY, G EDWARD RPA Unavailable Unavailable GARIBAY, G EDWARD RPA Unavailable Unavailable GARIBAY, G EDWARD RPA Unavailable Unavailable GARIBAY, G EDWARD RPA Unavailable Unavailable GARIBAY, G EDWARD RPA Unavailable Unavailable GARIBAY, G EDWARD RPA Unavailable Unavailable GARIBAY, G EDWARD RPA Unavailable Unavailable GARIBAY, G EDWARD RPA Unavailable Unavailable GARIBAY, G EDWARD RPA Unavailable Unavailable GARIBAY, G EDWARD RPA Unavailable Unavailable GARIBAY, G EDWARD RPA Unavailable Unavailable GARIBAY, G EDWARD RPA Unavailable Unavailable GARIBAY, G EDWARD RPA Unavailable Unavailable GARIBAY, G EDWARD RPA Unavailable Unavailable GARIBAY, G EDWARD RPA Unavailable Unavailable GARIBAY, G EDWARD RPA Unavailable Unavailable GARIBAY, G EDWARD RPA Unavailable Unavailable GARIBAY, G EDWARD RPA Unavailable Unavailable GARIBAY, G EDWARD RPA Unavailable Unavailable GARIBAY, G EDWARD RPA Unavailable Unavailable GARIBAY, G EDWARD RPA Unavailable Unavailable GARIBAY, G EDWARD RPA Unavailable Unavailable GARIBAY, G EDWARD RPA Unavailable Unavailable GARIBAY, G EDWARD RPA Unavailable Unavailable GARIBAY, G EDWARD RPA Unavailable Unavailable GARIBAY, G EDWARD RPA Unavailable Unavailable GARIBAY, G EDWARD RPA Unavailable Unavailable GARIBAY, G EDWARD RPA Unavailable Unavailable GARIBAY, G EDWARD RPA Unavailable Unavailable GARIBAY, G EDWARD RPA Unavailable Unavailable GARIBAY, G EDWARD RPA Unavailable Unavailable TONTARSKI, G NASIR PA Unavailable Unavailable TONTARSKI, G NASIR PA Unavailable Unavailable TONTARSKI, G NASIR PA Unavailable Unavailable TONTARSKI, G NASIR PA Unavailable Unavailable TONTARSKI, G NASIR PA Unavailable Unavailable TONTARSKI, G NASIR PA Unavailable Unavailable TONTARSKI, G NASIR PA Unavailable Unavailable TONTARSKI, G NASIR PA Unavailable Unavailable TONTARSKI, G NASIR PA Unavailable Unavailable TONTARSKI, G NASIR PA Unavailable Unavailable TONTARSKI, G NASIR PA Unavailable Unavailable TONTARSKI, G NASIR PA Unavailable Unavailable TONTARSKI, G NASIR PA Unavailable Unavailable TONTARSKI, G NASIR PA Unavailable Unavailable TONTARSKI, G NASIR PA Unavailable Unavailable TONTARSKI, G NASIR PA Unavailable Unavailable TONTARSKI, G NASIR PA Unavailable Unavailable TONTARSKI, G ANSIR PA Unavailable Unavailable TONTARSKI, G NASIR PA Unavailable Unavailable TONTARSKI, G NASIR PA Unavailable Unavailable TONTARSKI, G NASIR PA Unavailable Unavailable TONTARSKI, G NASIR PA Unavailable Unavailable TONTARSKI, G NASIR PA Unavailable Unavailable TONTARSKI, G NASIR PA Unavailable Unavailable TONTARSKI, G NASIR PA Unavailable Unavailable TONTARSKI, G NASIR PA Unavailable Unavailable TONTARSKI, G NASIR PA Unavailable Unavailable TONTARSKI, G NASIR PA Unavailable Unavailable TONTARSKI, G NASIR PA Unavailable Unavailable TONTARSKI, G NASIR PA Unavailable Unavailable TONTARSKI, G NASIR PA Unavailable Unavailable TONTARSKI, G NASIR PA Unavailable Unavailable TONTARSKI, G NASIR PA Unavailable Unavailable TONTARSKI, G ANSIR PA Unavailable Unavailable TONTARSKI, G NASIR PA Unavailable Unavailable TONTARSKI, G NASIR PA Unavailable Unavailable TONTARSKI, G NASIR PA Unavailable Unavailable TONTARSKI, G NASIR PA Unavailable Unavailable TONTARSKI, G NASIR PA Unavailable Unavailable TONTARSKI, G NASIR PA Unavailable Unavailable TONTARSKI, G NASIR PA Unavailable Unavailable TONTARSKI, G NASIR PA Unavailable Unavailable TONTARSKI, G NASIR PA Unavailable Unavailable TONTARSKI, G NASIR PA Unavailable Unavailable TONTARSKI, G NASIR PA Unavailable Unavailable TONTARSKI, G NASIR PA Unavailable Unavailable TONTARSKI, G NASIR PA Unavailable Unavailable Kindra Ruiz ANP-BC Unavailable Unavailable Kindra Ruiz ANP-BC Unavailable Unavailable Kindra Ruiz ANP-BC Unavailable Unavailable Kindra Ruiz ANP-BC Unavailable Unavailable Kindra Ruiz ANP-BC Unavailable Unavailable Kindra Ruiz ANP-BC Unavailable Unavailable Kindra Ruiz ANP-BC Unavailable Unavailable Kindra Ruiz ANP-BC Unavailable Unavailable Kindra Ruiz ANP-BC Unavailable Unavailable Kindra Ruiz ANP-BC Unavailable Unavailable Kindra Ruiz ANP-BC Unavailable Unavailable Kindra Ruiz ANP-BC Unavailable Unavailable Joseph, Kindra Susanna ANP-BC Unavailable Unavailable Joseph, Kindra Susanna ANP-BC Unavailable Unavailable Joseph, Kindra Susanna ANP-BC Unavailable Unavailable Joseph, Kindra Susanna ANP-BC Unavailable Unavailable Joseph, Kindra Susanna ANP-BC Unavailable Unavailable Joseph, Kindra Susanna ANP-BC Unavailable Unavailable Joseph, Kindra Susanna ANP-BC Unavailable Unavailable Joseph, Kindra Susanna ANP-BC Unavailable Unavailable Joseph, Kindra Susanna ANP-BC Unavailable Unavailable Joseph, Kindra Susanna ANP-BC Unavailable Unavailable Joseph, Kindra Susanna ANP-BC Unavailable Unavailable Joseph, Kindra Susanna ANP-BC Unavailable Unavailable Joseph, Kindra Susanna ANP-BC Unavailable Unavailable Joseph, Kindra Susanna ANP-BC Unavailable Unavailable Joseph, Kindra Susanna ANP-BC Unavailable Unavailable Joseph, Kindra Susanna ANP-BC Unavailable Unavailable Joseph, Kindra Susanna ANP-BC Unavailable Unavailable Joseph, Kindra Susanna ANP-BC Unavailable Unavailable Joseph, Kindra Susanna ANP-BC Unavailable Unavailable Joseph, Kindra Susanna ANP-BC Unavailable Unavailable Joseph, Kindra Susanna ANP-BC Unavailable Unavailable Joseph, Kindra Susanna ANP-BC Unavailable Unavailable Joseph, Kindra Susanna ANP-BC Unavailable Unavailable Joseph, Kindra Susanna ANP-BC Unavailable Unavailable Joseph, Kindra Susanna ANP-BC Unavailable Unavailable Joseph, Kindra Susanna ANP-BC Unavailable Unavailable Joseph, Kindra Susanna ANP-BC Unavailable Unavailable Joseph, Kindra Susanna ANP-BC Unavailable Unavailable Joseph, Kindra Susanna ANP-BC Unavailable Unavailable Joseph, Kindra Susanna ANP-BC Unavailable Unavailable Joseph, Kindra Susanna ANP-BC Unavailable Unavailable Joseph, Ikndra Susanna ANP-BC Unavailable Unavailable Joseph, Kindra Susanna ANP-BC Unavailable Unavailable Joseph, Kindra Susanna ANP-BC Unavailable Unavailable Joseph, Kindra Susanna ANP-BC Unavailable Unavailable Joseph, Kindra Susanna ANP-BC Unavailable Unavailable Joseph, Kindra Susanna ANP-BC Unavailable Unavailable Joseph, Kindra Susanna ANP-BC Unavailable Unavailable Joseph, Kindra Susanna ANP-BC Unavailable Unavailable Joseph, Kindra Susanna ANP-BC Unavailable Unavailable Joseph, Kindra Susanna ANP-BC Unavailable Unavailable Joseph, Kindra Susanna ANP-BC Unavailable Unavailable Joseph, Kindra Susanna ANP-BC Unavailable Unavailable Kindra Ruiz Susanna ANP-BC Unavailable Unavailable Lupillo Ruizlian Susanna ANP-BC Unavailable Unavailable Lupillo Ruizlian Susanna ANP-BC Unavailable Unavailable Lupillo Ruizlian Susanna ANP-BC Unavailable Unavailable Joseph, Kindra Susanna ANP-BC Unavailable Unavailable Lupillo Ruizlian Susanna ANP-BC Unavailable Unavailable Joseph, Kindra Susanna ANP-BC Unavailable Unavailable Lupillo Ruizlian Susanna ANP-BC Unavailable Unavailable Lupillo Ruizlian Susanna ANP-BC Unavailable Unavailable Kindra Ruiz Susanna ANP-BC Unavailable Unavailable Kindra Ruiz Susanna ANP-BC Unavailable Unavailable Re-disclosure Warning The records that you are about to access may contain information from federally-assisted alcohol or drug abuse programs. If such information is present, then the following federally mandated warning applies: This information has been disclosed to you from records protected by federal confidentiality rules (42 CFR part 2). The federal rules prohibit you from making any further disclosure of this information unless further disclosure is expressly permitted by the written consent of the person to whom it pertains or as otherwise permitted by 42 CFR part 2. A general authorization for the release of medical or other information is NOT sufficient for this purpose. The Federal rules restrict any use of the information to criminally investigate or prosecute any alcohol or drug abuse patient.The records that you are about to access may contain highly sensitive health information, the redisclosure of which is protected by Article 27-F of the [facility] Public Health law. If you continue you may have access to information: Regarding HIV / AIDS; Provided by facilities licensed or operated by the [facility] Office of Mental Health; or Provided by the [facility] Office for People With Developmental Disabilities. If such information is present, then the following [facility] mandated warning applies: This information has been disclosed to you from confidential records which are protected by state law. State law prohibits you from making any further disclosure of this information without the specific written consent of the person to whom it pertains, or as otherwise permitted by law. Any unauthorized further disclosure in violation of state law may result in a fine or fdc sentence or both. A general authorization for the release of medical or other information is NOT sufficient authorization for further disc losure. Allergies and Adverse Reactions Type Description Substance Reaction Status Data Source(s ) No Known Allergies No Known Allergies [facility] Family History Family Member Name Family Member Gender Family Member Status Date o f Status Description Data Source(s) Unknown Male Problem [facility] ([facility]) Encounters Encounter Providers Location Date Indications Data Source(s ) Outpatient Attender: Haris Wilson MD Main Office 12/15/2020 03:45:00 PM EDT [facility] ([facility]) Outpatient Attender: SHEILA ESTRADA MD Medical Building 11/01 11:30:00 AM EDT [facility] ([facility]) Outpatient Attender: Nathalie Hernandez MEDICAL SALES REPRESENTATIVE Main Office 10/11/2020 12:15:00 PM EDT [facility] ([facility]) Outpatient Attender: KEYLA GARIBAY RPA 07/27 12:31:05 PM EDT - 07/27/2020 12:54:55 PM EDT [facility] ([facility] ) Outpatient Attender: SHEILA ESTRADA MD Medical Building 07/04 03:00:00 PM EDT [facility] ([facility]) Outpatient Attender: Susanna Ruiz ANP-BCConsultant: NASIR DASILVA 06/15/2020 09:32:00 AM EST - 06/15/2020 09:32:00 AM EST [facility] Outpatient Attender: SHEILA ESTRADA MD Medical Building 03/15 10:30:00 AM EST [facility] ([facility]) Outpatient Attender: Jessica Ybarra MD Main office [facility] 02/12/2020 10:45:00 AM EDT [facility] ([facility]) Outpatient Attender: SHEILA ESTRADA MD Medical Building 01/13 11:15:00 AM EDT [facility] ([facility]) Medications Medication Brand Name Start Date Product Form Dose Route Admi nistrative Instructions Pharmacy Instructions Status Indications Reaction Description Data Source(s) Suprep Bowel Prep Kit Suprep Bowel Prep Kit 12/15/2020 12:00:00 AM EDT active [facility] ([facility]) atorvastatin 40 MG Oral Tablet Atorvastatin Calcium 11/01/2020 1 2:00:00 AM EDT ORAL active [facility] ( Sheila Estrada MD) Colestipol Hydrochloride 1000 MG Oral Tablet Colestipol HCL 11/01/2020 12:00:00 AM EDT active [facility] ([facility]) Aspirin 81 MG Delayed Release Oral Tablet Aspirin 11/01/2020 1 2:00:00 AM EDT ORAL active [facility] (Sheila Estrada MD) Glucosamine Sulfate 500 MG Oral Capsule Glucosamine 11/02/19 12:00:00 AM EDT ORAL active [facility] ( Sheila Estrada MD) coenzyme Q10 100 MG Oral Capsule Coq-10 11/01/2020 12:00:00 AM EDT active [facility] (Sheila Estrada MD) Tamsulosin hydrochloride 0.4 MG Oral Capsule Tamsulosin HCL 11/01/2020 12:00:00 AM EDT ORAL active [facility] (Amber Estrada MD) ferrous gluconate 324 MG Oral Tablet Ferrous Gluconate 12:00:00 AM EDT active [facility] ([facility] Estrada MD) Statin 07/04/2020 12:00:00 AM EDT completed [facility] ([facility]ila Estrada MD) Metformin hydrochloride 500 MG Oral Tablet Metformin HCL 07/04/2020 12:00:00 AM EDT completed [facility] (Sheila Estrada MD) Meclizine Hydrochloride 25 MG Oral Tablet Meclizine HCL 03/15/2020 12:00:00 AM EST active [facility] ([facility]) Insurance Providers Payer name Policy type / Coverage type Policy ID Covered alliance party ID Covered alliance party's relationship to hua Policy Hua Plan Information [employer] [id number] [place] [id number] MEDICARE A [id number] Self [id number] A [employer] U [id number] [facility] [id number] [facility] [place] CCN [employer] [place] Plan/ [id number] Self [id number] UMR -O/P [id number] 01 [id number] UMR -PHYSICIAN [id number] 1 [id number] [facility] [id number] ADMINISTRATION [id number] [place] [id number] R [facility] [id number] [facility] CHOICE 001 SP 001 Umr Commercial [id number] Family Dependent [id number] U[employer] Commercial [id number] Family Dependent [id number] [employer] [id number] Family Dependent [id number] [employer] [id number] Family Dependent [id number] UMR CO UNAVAILABLE 01 UNAVAILA BLE [employer] [id number] Family Dependent [id number] UMR -CLINIC [id number] 01 [id number] [employer] [id number] Family Dependent [id number] [place] [id number] 01 [id number] [employer] [id number] Family Dependent [id number] [employer]-O/P [id number] 01 [id number] 'S ADMINISTRATION [id number] SP [id number] SELF PAY [employer] [place] CCN [id number] SP [id number] R[place] MEDICARE PART [place] [id number] 18 [id number] U[employer] [id number] 01 [id number] Problems, Conditions, and Diagnoses Code Display Name Description Problem Type Effective Dates Data Source(s) [id number] Anemia Anemia Problem 12/15/2020 12:00:00 AM ED T [facility] ([facility]) Surgeries/Procedures Procedure Description Date Indications Data Source(s) OFFICE OUTPATIENT VISIT 15 MINUTES 12/15/2020 12:00:00 AM EDT [facility] ([facility]) OFFICE OUTPATIENT VISIT 25 MINUTES 11/01/2020 12:00:00 AM EDT [facility] (Sheila Estrada MD) OFFICE OUTPATIENT VISIT 25 MINUTES 10/11/2020 12:00:00 AM EDT [facility] ([facility]) OFFICE OUTPATIENT VISIT 25 MINUTES 07/04/2020 12:00:00 AM EDT [facility] (Sheila Estrada MD) Results ID Date Data Source [id number] 07/28/2020 08:03:00 AM EDT [facility] Name Value Range Interpretation Code Description Data Rani rce(s) Supporting Document(s) COVID-19 RT-PCR OFFICE TECHNICIAN SWAB Not Detected Not Detected [facility] A not detected (negative) test result fo r this test means that SARS-CoV-2 RNA was not present in the specimen above the limit ofdetection. Laboratory test results should always be considered in thecontext of clinical observations and epidemiological data in making afinal diagnosis and patient management decisions. Results will bereported to government agencies as required.This test has received Emergency Use Authorization (EUA). We will continue to follow federal and state requirements for COVID-19 reporting. This test has been authorized only for the detection of RNAfrom SARS-CoV-2 virus and diagnosis of SARS-CoV-2 virus infection, notfor any other viruses or pathogens. This test is only authorized for the duration of the declaration that circumstances exist justifying the authorization of the emergency use of in vitro diagnostic tests for detection of SARS-CoV-2 virus and/or diagnosis of SARS-CoV-2 virusinfection under section 564(b)(1) of the Act, 21 U.S.C. section 360bbb-3(b)(1), unless the authorization is terminated or revoked sooner. We will continue to follow federal and state requirements for both notification of results and any confirmatory testing that is required by another agency. This test was developed and its performance characteristics determined by [employer] and verified at [facility] [employer]. It has not been cleared or approved by the U.S. Food and Drug Administration for diagnostic use. This test has been authorized by FDA under an EUA for use by authorized laboratories. Results should be used in conjunction with clinical findings, and should not form the sole basis for a diagnosis or treatment decision. Methods: SARS-CoV-2 Multiplex RT-PCR Assay ID Date Data Source [id number] 07/27/2020 12:45:00 PM EDT [facility] Name Value Range Interpretation Code Description Data Rani rce(s) Supporting Document(s) SARS-CoV-2 (COVID-19) N gene [Presence] in Respiratory specimen by MITCH with probe detection NEGATIVE [facility] This lab was ordered by Helen Serrano and reported by [facility]. Procedure Social History No Information Vital Signs ID Date Data Source UNK Name Value Range Interpretation Code Description Data Source(s) Body height 67 [in_i] 67 [in_i] [facility] ([facility]) 5'7" Body weight 200.00 [lb_av] 200.00 [lb_av] MEDEN T ([facility]) Systolic blood pressure 125 mm[Hg] 125 mm[Hg] M [facility] ([facility]) Diastolic blood pressure 74 mm[Hg] 74 mm[Hg] [facility] ([facility]) Heart rate 83 /min 83 /min [facility] ([facility]) Body mass index (BMI) [Ratio] 31.3 kg/m2 31.3 k g/m2 [facility] ([facility]) Body weight 90.720 kg 90.720 kg [facility] ([facility]) Body temperature 97.7 [degF] 97.7 [degF] [facility] ([facility]) Body height 69 [in_i] 69 [in_i] [facility] (Sheila Estrada [facility]) 5'9" Body weight 203.38 [lb_av] 203.38 [lb_av] [facility] T (Sheila Estrada MD) Body mass index (BMI) [Ratio] 30.0 kg/m2 30.0 k g/m2 [facility] ([facility]ila Estrada MD) Body temperature 97.8 [degF] 97.8 [degF] [facility] ([facility] Estrada MD) Systolic blood pressure 141 mm[Hg] 141 mm[Hg] M [facility] (Sheila Estrada MD) Diastolic blood pressure 72 mm[Hg] 72 mm[Hg] [facility] ([facility] Estrada MD) Heart rate 80 /min 80 /min [facility] (Sheila Estrada MD) Oxygen saturation in Arterial blood by Pulse oximetry 97 % 97 % [facility] (Sheila Estrada MD) Systolic blood pressure 122 mm[Hg] 122 mm[Hg] M [facility] ([facility]) Diastolic blood pressure 72 mm[Hg] 72 mm[Hg] [facility] ([facility]) Body weight 194.00 [lb_av] 194.00 [lb_av] [facility] T ([facility]) Respiratory rate 18 /min 18 /min [facility] ( [facility]) Body height 69 [in_i] 69 [in_i] [facility] (Sheila Estrada MD) 5'9" Body weight 203.00 [lb_av] 203.00 [lb_av] [facility] T (Sheila Estrada MD) Body mass index (BMI) [Ratio] 30.0 kg/m2 30.0 k g/m2 [facility] ([facility]ila Estrada MD) Body temperature 97.5 [degF] 97.5 [degF] [facility] (Sheila Estrada MD) Systolic blood pressure 144 mm[Hg] 144 mm[Hg] M [facility] (Sheila Estrada MD) Diastolic blood pressure 75 mm[Hg] 75 mm[Hg] [facility] (Sheila Estrada MD) Heart rate 76 /min 76 /min [facility] (Sheila Estrada MD) Oxygen saturation in Arterial blood by Pulse oximetry 98 % 98 % [facility] (Sheila Estrada MD) Systolic blood pressure 128 mm[Hg] 128 mm[Hg] M [facility] ([facility]) Diastolic blood pressure 67 mm[Hg] 67 mm[Hg] [facility] ([facility]) Body weight 198.00 [lb_av] 198.00 [lb_av] [facility] T ([facility]) Body temperature 99.5 [degF] 99.5 [degF] [facility] ([facility]) Body height 69 [in_i] 69 [in_i] [facility] (Sheila Estrada MD) 5'9" Body weight 210.00 [lb_av] 210.00 [lb_av] [facility] T (Sheila Estrada MD) Body mass index (BMI) [Ratio] 31.0 kg/m2 31.0 k g/m2 [facility] (Sheila Estrada MD) Body temperature 98.1 [degF] 98.1 [degF] [facility] (Sheila Estrada MD) Systolic blood pressure 157 mm[Hg] 157 mm[Hg] M [facility] (Sheila Estrada MD) Diastolic blood pressure 85 mm[Hg] 85 mm[Hg] [facility] (Sheila Estrada MD) Heart rate 83 /min 83 /min [facility] (Sheila Estrada MD) Oxygen saturation in Arterial blood by Pulse oximetry 97 % 97 % [facility] (Sheila Estrada MD) Respiratory rate 18 /min 18 /min [facility] ( Sheila Estrada MD)
--- NOTE | 2021-02-13 10:49 | ROOR ---
Patient Name: Moshe Tillman Procedure Date: 02/13/2021 10:33 AM Date of : 1950 Age: 70 Room: [facility] Gender: Male Note Status: Finalized Procedure: Upper Endoscopy + Biopsies Indications: Unexplained iron deficiency anemia Providers: Haris Wilson MD Referring MD: Pearl Rivera, [facility], Admin. Requesting Provider: Medicines: Monitored Anesthesia Care Complications: No immediate complications. Procedure: Pre-Anesthesia Assessment: - The heart rate, respiratory rate, oxygen saturations, blood pressure, adequacy of pulmonary ventilation, and response to care were monitored throughout the procedure. The Endoscope was introduced through the mouth, and advanced to the second part of duodenum. The upper GI endoscopy was accomplished without difficulty. The patient tolerated the procedure well. Findings: The Z-line was variable and was found 40 cm from the incisors. Multiple biopsies were obtained with cold forceps for evaluation to rule out Santana's Esophagus randomly at the gastroesophageal junction. No other significant abnormalities were identified in a careful examination of the stomach. Biopsies were taken with a cold forceps in the gastric antrum for Helicobacter pylori testing. The exam of the duodenum was otherwise normal. Biopsies for histology were taken with a cold forceps in the first portion of the duodenum for evaluation of celiac disease. The exam was otherwise without abnormality. Impression: - Z-line variable, 40 cm from the incisors. - The examination was otherwise normal. - Multiple biopsies were obtained at the gastroesophageal junction. - Biopsies were taken with a cold forceps for Helicobacter pylori testing. - Biopsies were taken with a cold forceps for evaluation of celiac disease. - The examination was otherwise normal. Recommendation: - Patient has a contact number available for emergencies. The signs and symptoms of potential delayed complications were discussed with the patient. Return to normal activities tomorrow. Written discharge instructions were provided to the patient. - High fiber diet. - Discharge patient to home. - Follow an antireflux regimen. - Continue present medications. - Await pathology results. - Telephone GI clinic for pathology results in 1 week. - Return to referring physician. - The findings and recommendations were discussed with the patient. Procedure Code(s): --- Professional --- 80009, Esophagogastroduodenoscopy, flexible, transoral; with biopsy, single or multiple Diagnosis Code(s): --- Professional --- K22.8, Other specified diseases of esophagus D50.9, Iron deficiency anemia, unspecified CPT copyright 2019 [employer]. All rights reserved. The codes documented in this report are preliminary and upon appeals nurse review may be revised to meet current compliance requirements. Haris Wilson MD Haris Wilson MD 02/13/2021 10:49:37 AM Electronically signed by Haris Wilson MD Number of Addenda: 0 Note Initiated On: 02/13/2021 10:33 AM Estimated Blood Loss: Estimated blood loss: none.
--- NOTE | 2021-02-13 11:04 | ROOR ---
Patient Name: Moshe Tillman Procedure Date: 02/13/2021 10:34 AM Date of : 1950 Age: 70 Room: [facility] Gender: Male Note Status: Finalized Procedure: Colonoscopy to Anastomosis Indications: Unexplained iron deficiency anemia Providers: Haris Wilson MD Referring MD: Pearl Rivera, [facility], Admin. Requesting Provider: Medicines: Monitored Anesthesia Care Complications: No immediate complications. Procedure: Pre-Anesthesia Assessment: - The heart rate, respiratory rate, oxygen saturations, blood pressure, adequacy of pulmonary ventilation, and response to care were monitored throughout the procedure. The Colonoscope was introduced through the anus and advanced to the ileocolonic anastomosis. The colonoscopy was performed without difficulty. The patient tolerated the procedure well. The quality of the bowel preparation was good. Findings: The perianal and digital rectal examinations were normal. Non-bleeding internal hemorrhoids were found during retroflexion. The hemorrhoids were small and Grade I (internal hemorrhoids that do not prolapse). Multiple small and large-mouthed diverticula were found in the recto-sigmoid colon, sigmoid colon and descending colon. There was evidence of a prior end-to-end ileo-colonic anastomosis at the hepatic flexure. This was patent and was characterized by healthy appearing mucosa. The exam was otherwise without abnormality on direct and retroflexion views. Impression: - Non-bleeding internal hemorrhoids. - Diverticulosis in the recto-sigmoid colon, in the sigmoid colon and in the descending colon. - Patent end-to-end ileo-colonic anastomosis, characterized by healthy appearing mucosa. - The examination was otherwise normal on direct and retroflexion views. - No specimens collected. - The examination was otherwise normal. Recommendation: - Patient has a contact number available for emergencies. The signs and symptoms of potential delayed complications were discussed with the patient. Return to normal activities tomorrow. Written discharge instructions were provided to the patient. - High fiber diet. - Discharge patient to home. - Continue present medications. - Repeat colonoscopy is not recommended for screening purposes. - Return to referring physician. - The findings and recommendations were discussed with the patient. Procedure Code(s): --- Professional --- 56898, Colonoscopy, flexible; diagnostic, including collection of specimen(s) by brushing or washing, when performed (separate procedure) Diagnosis Code(s): --- Professional --- K64.0, First degree hemorrhoids Z98.0, Intestinal bypass and anastomosis status D50.9, Iron deficiency anemia, unspecified K57.30, Diverticulosis of large intestine without perforation or abscess without bleeding CPT copyright 2019 [employer]. All rights reserved. The codes documented in this report are preliminary and upon sand tester review may be revised to meet current compliance requirements. Haris Wilson MD Haris Wilson MD 02/13/2021 11:04:25 AM Electronically signed by Haris Wilson MD Number of Addenda: 0 Note Initiated On: 02/13/2021 10:34 AM Estimated Blood Loss: Estimated blood loss: none.
[2021-02-13 11:27] VITALS: BP 123/64
== END 2021-02-13 11:39 | disposition home or self-care (01) ==
LOC: M OPP 09:32
PROVIDERS: ATTEND Internal Medicine Gastroenterology
DX: K57.30 Diverticulosis of large intestine without perforation or abscess without bleeding (principal); Z98.0 Intestinal bypass and anastomosis status; K64.0 First degree hemorrhoids; D50.9 Iron deficiency anemia, unspecified; K22.89 Other specified disease of esophagus; K74.60 Unspecified cirrhosis of liver; Z79.899 Other long term (current) drug therapy
CPT/HCPCS: 43239; 45378; 88305; J3010

== ENCOUNTER → 2021-04-28 | Outpatient (CLI) | payer OTHER ==
[~2021-04-28] MED LIST changes: -LIDOCAINE 2% 100MG/5ML SDV (FOR ANES.) As Ordered ONE; -NS 1,000 ML IV ONE; -fentaNYL 100 MCG/2 ML INJECTION (J3010) As Ordered ONE; -propofoL 500 MG/50 ML VIAL As Ordered ONE
== END ==
LOC: M RAD 07:52
PROVIDERS: ATTEND Nurse Practitioner Primary Care
DX: E78.1 Pure hyperglyceridemia (principal); R79.89 Other specified abnormal findings of blood chemistry; R16.1 Splenomegaly, not elsewhere classified; K76.0 Fatty (change of) liver, not elsewhere classified

== ENCOUNTER → 2022-05-08 | Outpatient (CLI) | payer OTHER ==
[~2022-05-08] MED LIST changes: +COLE625T17 PO; -COLE625TAB PO; +COQ1200C3 PO; -D31000TA2 PO; +FLOM0.4C39 PO; +LIDOCAINE 1% MDV 20ML VIAL As Ordered ONE; +LISI5TAB11 PO; +VITA100093 PO; +VITA500C24 PO; +[UNRECOGNIZED DRUG - CODE]
[2022-05-08 11:49] LABS: BASO % 0.7 % (0.0-1.0); EOS # 0.1 10^3/uL (0.0-0.5); EOS % 2.6 % (0.0-3.0); HEMATOCRIT 37.3 % (42.0-52.0); HEMOGLOBIN 11.8 g/dl (13.5-17.5); LYMPH # 1.7 10^3/uL (1.5-5.0); LYMPH % 37.6 % (24.0-44.0); MEAN CORPUSCULAR HEMOGLOBIN 28.5 pg (27.0-33.0); MEAN CORPUSCULAR HGB CONC 31.6 g/dl (32.0-36.5); MEAN CORPUSCULAR VOLUME 90.1 fl (80.0-96.0); MONO # 0.4 10^3/uL (0.0-0.8); MONO % 9.2 % (2.0-8.0); NEUTROPHILS # 2.3 10^3/uL (1.5-8.5); NEUTROPHILS % 49.7 % (36.0-66.0); PLATELET COUNT, AUTOMATED 135 10^3/uL (150-450); RED BLOOD COUNT 4.14 10^6/uL (4.30-6.10); WHITE BLOOD COUNT 4.6 10^3/uL (4.0-10.0)
[2022-05-08 12:30] VITALS: BP 149/83
== END ==
LOC: M IRPRO 11:12
PROVIDERS: ATTEND Specialist
DX: D61.818 Other pancytopenia (principal)

== ENCOUNTER → 2022-06-30 | Outpatient (CLI) | payer MEDICARE, OTHER ==
[~2022-06-30] MED LIST changes: -LIDOCAINE 1% MDV 20ML VIAL As Ordered ONE
[2022-06-30 11:57] LABS: HEMOGLOBIN A1c 6.1 % (4.0-6.0)
[2022-06-30 12:02] LABS: FOLATE 21.71 NG/ML (>5.4)
== END ==
LOC: M LAB 10:57
PROVIDERS: ATTEND Psychiatry & Neurology Neurology
DX: E53.8 Deficiency of other specified B group vitamins (principal); E61.0 Copper deficiency; E11.40 Type 2 diabetes mellitus with diabetic neuropathy, unspecified; R26.9 Unspecified abnormalities of gait and mobility

== ENCOUNTER → 2023-02-05 | Outpatient (CLI) | payer OTHER, MEDICARE ==
[~2023-02-05] MED LIST changes: +GASTROGRAFIN SOLUTION 30ML As Ordered ONE; +ISOVUE-370 76% 100ML VIAL As Ordered ONE; -OXYB5TAB10 PO; +OXYB5TAB11 PO
== END ==
LOC: M RAD 11:34
PROVIDERS: ATTEND Specialist
DX: C85.90 Non-Hodgkin lymphoma, unspecified, unspecified site (principal); R16.1 Splenomegaly, not elsewhere classified; K57.30 Diverticulosis of large intestine without perforation or abscess without bleeding; N40.0 Benign prostatic hyperplasia without lower urinary tract symptoms; N42.0 Calculus of prostate; R91.8 Other nonspecific abnormal finding of lung field
CPT/HCPCS: 70491; 71260; 74177; Q9963; Q9967

== ENCOUNTER 2023-02-06 08:48 | Day surgery (SDC) | payer MEDICARE, OTHER ==
[~2023-02-06] VITALS: Ht 170.2 cm; Wt 83.8 kg
[~2023-02-06 08:48] MED LIST changes: -GASTROGRAFIN SOLUTION 30ML As Ordered ONE; -ISOVUE-370 76% 100ML VIAL As Ordered ONE; +NS 1,000 ML IV ONE
[2023-02-06] MEDS ORDERED: LIDOCAINE 2% 100MG/5ML SDV (FOR ANES.) As Ordered ONE (10:01)
[2023-02-06] MEDS ORDERED: propofoL 200 MG/20 ML VIAL As Ordered ONE (10:01)
[2023-02-06] MEDS ORDERED: fentaNYL 100 MCG/2 ML INJECTION As Ordered ONE (10:01)
[2023-02-06 10:38] VITALS: TEMP 96.7
[2023-02-06 10:55] VITALS: BP 115/69; O2SAT 95
== END 2023-02-06 11:28 | disposition home or self-care (01) ==
LOC: M OPP 08:48
PROVIDERS: ATTEND Internal Medicine Gastroenterology
DX: Z12.11 Encounter for screening for malignant neoplasm of colon (principal); Z86.010 Personal history of colon polyps; K64.0 First degree hemorrhoids; K57.30 Diverticulosis of large intestine without perforation or abscess without bleeding; K20.90 Esophagitis, unspecified without bleeding; K22.89 Other specified disease of esophagus; Z79.84 Long term (current) use of oral hypoglycemic drugs; Z79.83 Long term (current) use of bisphosphonates; Z79.899 Other long term (current) drug therapy
CPT/HCPCS: 43239; 45378; 88305; J3010

== ENCOUNTER 2023-06-11 14:11 | Outpatient (CLI) | payer MEDICARE, OTHER ==
[2023-06-11 14:00] VITALS: BP 145/69; O2SAT 100
[~2023-06-11 14:11] MED LIST changes: -NS 1,000 ML IV ONE; -OXYB5TAB11 PO; +OXYB5TAB14 PO
[2023-06-11] MEDS: FERRIC CARBOXYMALTOSE INJ 750 MG in NS 250 ML (>50kg) IV ONE (14:29)
[2023-06-11 15:38] VITALS: BP 155/75; O2SAT 98
== END 2023-06-11 15:40 ==
LOC: M INFU 14:11
PROVIDERS: ATTEND Nurse Practitioner
DX: D50.9 Iron deficiency anemia, unspecified (principal)
CPT/HCPCS: 96365; J1439

== ENCOUNTER 2023-06-18 14:39 | Outpatient (CLI) | payer MEDICARE, OTHER ==
[2023-06-18 14:45] VITALS: BP 165/79; O2SAT 98
[2023-06-18] MEDS: FERRIC CARBOXYMALTOSE INJ 750 MG in NS 250 ML (>50kg) IV ONE (14:53)
[2023-06-18 15:57] VITALS: BP 145/76; O2SAT 97
[2023-06-18 16:10] VITALS: BP 148/80; O2SAT 99
== END 2023-06-18 16:10 | disposition home or self-care (01) ==
LOC: M INFU 14:39
PROVIDERS: ATTEND Nurse Practitioner
DX: D50.9 Iron deficiency anemia, unspecified (principal)
CPT/HCPCS: 96365; J1439

== ENCOUNTER 2023-06-28 16:10 | Outpatient (CLI) | payer OTHER, MEDICARE ==
[~2023-06-28] VITALS: Ht 170.2 cm; Wt 83.1 kg
[2023-06-28 16:10] VITALS: BP 142/70; O2SAT 98
[~2023-06-28 16:10] MED LIST changes: -B-COTAB4 PO; +VITA1TAB78 PO
[2023-06-28] MEDS: FERRIC CARBOXYMALTOSE INJ 750 MG in NS 250 ML (>50kg) IV ONE (16:22)
[2023-06-28 17:40] VITALS: BP 140/68; O2SAT 99
== END 2023-06-28 17:35 | disposition home or self-care (01) ==
LOC: M INFU 16:10
PROVIDERS: ATTEND Nurse Practitioner
DX: D50.9 Iron deficiency anemia, unspecified (principal)
CPT/HCPCS: 96365; J1439

== ENCOUNTER 2024-05-06 11:03 | Emergency (ER) | payer OTHER, MEDICARE ==
[~2024-05-06] VITALS: Ht 170.2 cm; Wt 88.7 kg
[~2024-05-06 11:03] MED LIST changes: +HYDROIN11 TOP; +K-PHTAB2 PO; +ROSU5TAB49 PO; +[UNRECOGNIZED DRUG - OTHER] TOP; +[UNRECOGNIZED DRUG - OTHER] TOP
[2024-05-06 13:45] VITALS: BP 140/66; O2SAT 97
[2024-05-06 14:07] VITALS: TEMP 97.1
== END 2024-05-06 14:40 | disposition left against medical advice (07) ==
LOC: M ED 11:03
DX: R21 Rash and other nonspecific skin eruption (principal); E11.9 Type 2 diabetes mellitus without complications; Z79.4 Long term (current) use of insulin; Z79.899 Other long term (current) drug therapy; Z53.9 Procedure and treatment not carried out, unspecified reason

== ENCOUNTER → 2024-08-03 | Outpatient (CLI) | payer OTHER ==
[2024-08-03 12:06] LABS: IRON (FE) 38 UG/DL (65-175)
[2024-08-03 12:09] LABS: FERRITIN 31.7 NG/ML (10.5-307.3); HEPATITIS B SURFACE ANTIBODY NEGATIVE (POSITIVE)
[2024-08-03 12:20] LABS: HEPATITIS B SURFACE ANTIGEN NEGATIVE (NEGATIVE)
[2024-08-03 12:41] LABS: HEPATITIS C VIRUS ABY INDEX 0.04 INDEX (<0.8)
[2024-08-05 01:46] LABS: TISSUE TRANSGLUTAMINASE IgA < 1.0 U/mL (<15.0); TISSUE TRANSGLUTAMINASE IgG 1.8 U/mL (<15.0); UNITSIGA FOR GLIADIN IGA < 1.0 U/mL (<15.0); UNITSIGG FOR GLIADIN IGG < 1.0 U/mL (<15.0)
[2024-08-05 12:37] LABS: ANA SCREEN, IFA NEGATIVE (NEGATIVE)
[2024-08-05 16:51] LABS: ANTI-MITOCHONDRIAL ANTIBODY NEGATIVE (NEGATIVE); HCV RNA QUANTITATION <15 NOT DETECTED IU/mL (NOT DETECTED); HCV RNA log10 <1.18 NOT DETECTED Log IU/mL (NOT DETECTED)
[2024-08-06 15:57] LABS: ANTI-SMOOTH MUSCLE ANTIBODY < 20 U (<20)
== END ==
LOC: M LAB REF 09:52
PROVIDERS: ATTEND Internal Medicine Gastroenterology
DX: R94.5 Abnormal results of liver function studies (principal); D50.9 Iron deficiency anemia, unspecified